=== PATIENT | female | born 1965 | race Caucasian/White ===

== ENCOUNTER → 2017-09-05 | Outpatient (CLI) | payer BC ==
[~2017-09-05] MED LIST: AYG5 PO
== END | disposition home or self-care (01) ==
LOC: C.PAPS 11:40
PROVIDERS: ATTEND Obstetrics & Gynecology
DX: Z01.411 Encounter for gynecological examination (general) (routine) with abnormal findings (principal)

== ENCOUNTER → 2017-12-15 | Outpatient (CLI) | payer BC ==
--- NOTE | 2017-12-26 07:35 | CODING QUERY NO DIAGNOSIS ---
TREATMENT RENDERED WITHOUT A DIAGNOSIS To promote full compliance with coding requirements relating to patient care, physician participation is requested in all cases of tv host uncertainty. Please assist us with providing a diagnosis/symptom for the test(s) below: A diagnosis/symptom was not documented on your Order. A valid diagnosis/symptom is required to bill all insurances. Please remember that we are unable to code a diagnosis of rule out, probable, possible, questionable, or suspected. Tests that require a diagnosis: DOS: 12/15/17 * FECAL GLOBIN (INSURE) DIAGNOSIS: Provider Signature: Date: Thank you [facility] [employer] Once completed, please kindly fax back to [phone] For questions please call [phone]
== END | disposition home or self-care (01) ==
LOC: C.LABSPEC 12:28
PROVIDERS: ATTEND Obstetrics & Gynecology
DX: Z12.12 Encounter for screening for malignant neoplasm of rectum (principal); Z12.11 Encounter for screening for malignant neoplasm of colon